=== PATIENT | male | born 1960 | race Caucasian/White ===

== ENCOUNTER 2020-03-27 12:04 | Observation (INO) ==
--- NOTE | 2020-03-27 12:34 | ERNOTE ---
Chest Pain/Cardiac HPI Date of Service: 03/27/20 Chief Complaint: Chest Pain Time Seen by Provider: 03/27/20 12:19 Source: patient, RN notes reviewed, past records Exam Limitations: no limitations Immunizations: IMMUNIZATION HX Immunizations Up to Date Yes History of Influenza Vaccine No Hx Pneumococcal Vaccination No Allergies/Adverse Reactions: Allergies Penicillins Adverse Reaction (Verified 03/27/20 12:12) Other Home Medications: HOME MEDICATIONS aspirin 81 mg tablet,delayed release 81 mg PO DAILY 05/23/19 [Last Taken Unknown] atorvastatin 40 mg tablet 40 mg PO DAILY tab 05/23/19 [Last Taken Unknown] clopidogrel 75 mg tablet 75 mg PO DAILY tab 05/23/19 [Last Taken Unknown] lisinopril 5 mg tablet 5 mg PO DAILY 05/23/19 [Last Taken Unknown] nitroglycerin 0.4 mg sublingual tablet 0.4 mg SL Q5-15M PRN 05/23/19 [Last Taken Unknown] metoprolol succinate 25 mg tablet,extended release 24 hr tab PO 11/21/19 [Last Taken Unknown] varenicline 0.5 mg (11)-1 mg (42) tablets in a dose pack See Rx Instructions PO PER PKG DIR #53 tab 01/15/20 [Last Taken Unknown] Narrative: Rich is a 59-year-old male who presents to the emergency department for chest pain. 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 He reports that he was generally not feeling well when he got up today. He had midsternal chest pain that radiated into his left arm and up the left side of his neck. His chest pain has currently improved but he still reports some soreness in his neck and left arm. He has not taken any nitroglycerin. He took 1 baby aspirin this morning. He reports that he had a heart attack in April of this year. He underwent a cardiac catheterization at that time and was found to have 3 severely blocked arteries. He reports that the arteries were too small for stents to be placed. His condition has been medically managed by Dr. Walsh at [facility] since then. Date (Duration): 03/27/20 Time (Timing): 10:00 Timing: resolved prior to arrival Severity/Quality: moderate, aching Location: substernal Chest Pain Radiation: arms - left, neck Activities at Onset: other - driving Nitro Today/Relief: no nitro taken today Aspirin Treatment Today: 81 mg x 1, provided at home Associated Symptoms: Absent: headache, cough, fever/chills, nausea, vomiting Prior Chest Pain/Cardiac Workup: Reports: prior chest pain, heart attack, cardiac cath Prior Treatment: Denies: recently seen, currently on antibiotics Review of Systems - Review of Systems Constitutional: Present: fatigue, malaise. Absent: recent illness, fever, chills EYE: Present: no symptoms reported ENT: Present: nose congestion, nasal drainage. Absent: ear pain, sore throat Respiratory: Absent: shortness of breath, cough Cardiology: Present: chest pain. Absent: palpitations, syncope, edema Gastrointestinal/Abdominal: Absent: nausea, vomiting, abdominal pain Genitourinary: Present: no symptoms reported Musculoskeletal: Present: muscle pain. Absent: joint pain Skin: Present: rash. Absent: lesions Neurological: Absent: headache, dizziness/light-headedness Endocrine: Present: no symptoms reported Hematologic/Lymphatic: Present: easy bruising, easy bleeding Psych: Present: no symptoms reported Medical History (Last Reviewed 03/27/20 @ 13:00 by Milagros Galloway NP) Coronary artery disease (Chronic) Hypertension (Chronic) Onset Date: Unknown Fall Onset Date: 06/19/18 Hip pain, left Onset Date: 06/19/18 History of pneumonia as a child Rotator cuff (capsule) sprain Onset Date: 06/26/15 Sciatic leg pain Onset Date: 06/19/18 NSTEMI (non-ST elevated myocardial infarction) Onset Date: 05/15/19 Surgical History: Surgical History (Last Reviewed 03/27/20 @ 13:01 by Milagros Galloway NP) History of right heart catheterization Onset Date: 04/2019 History of tonsillectomy Onset Date: Unknown Family History: Family History (Last Reviewed 03/27/20 @ 13:01 by Milagros Galloway NP) Mother Breast cancer Social History: (Last Reviewed 03/27/20 @ 13:01 by Milagros Galloway NP) Social History: adopted: No Marital status: household members: spouse number of children: 2 current occupational status: employed current occupation: [employer] Highest level of school completed/degree received: some college, no degree Sexually Active: Yes Service: No Tobacco: Smoking Status: Current every day smoker Alcohol: alcohol intake: never Substance Use: substance use type: does not use Dietary Habits: caffeine: Yes Type: carbonated beverages Trish/Scientologist: special trish needs: No Physical Exam - Physical Exam General Appearance: Present: wd/wn, alert Head Exam: Present: normal inspection Eye Exam: Normal inspection: bilateral Ears, Nose, Throat: Present: nasal congestion, normal pharynx. Absent: abnormal TM (R), abnormal TM (L), sinus pain/drainage Neck: Present: normal inspection, nontender, supple, full range of motion Respiratory: Present: no respiratory distress, normal breath sounds, no accessory muscle use, chest nontender, lungs clear Cardiovascular/Chest: Present: regular rate, rhythm, no murmur, normal peripheral pulses Extremity Exam: Present: normal inspection, normal range of motion, no edema Neurological Exam: Present: alert, oriented, normal mood/affect, no motor/sensory deficits Skin Exam: Present: normal color, warm/dry, skin rash - dried papular rash to dorsal hands and forearms Progress - Results and Orders Patient's Lab Results:: I have reviewed the patient's lab results. - Vital Signs Patient's Vital Signs:: I have reviewed the patient's vital signs. Vital Signs: Vital Signs 03/27/20 12:05 Temperature 36.9 C Pulse Rate 72 Respiratory Rate 18 Blood Pressure 143/98 H O2 Sat by Pulse Oximetry 96 - EKG EKG #1 EKG: NSR EKG read: Reviewed by me - X-Ray X-Ray #1 X-Ray: chest Interpretation: Reviewed by me X-ray Comments: No acute cardiopulmonary findings - Progress/Reassessment Chief Complaint: Chest Pain Progress:: Improved Progress Note-Subjective: 03/27/20 14:13 The patient continues to not have chest pain. His work-up was essentially unremarkable, but due to his history I contacted Dr. Ozuna who agreed to admit him for observation. The patient will be tested for COVID-19 prior to bed placement. 03/27/20 15:32 The patient is negative for COVID-19 and will be taken to the floor shortly. He has not had any further chest pain. Departure Clinical Impression: Chest pain, rule out acute myocardial infarction - Departure Disposition: Still a patient Condition: Stable Referrals: Jason Mackay DO [Primary Care Provider] -
[2020-03-27 12:38] LABS: Hematocrit 43.2 % (42.0-52.0); Hemoglobin 14.1 gm/dL (13.5-18.0); Mean Cell Volume 87.3 fl (78-100); Mean Corpuscular Hemoglobin 28.5 pg (27-31); Mean Corpuscular Hgb Conc 32.6 g/dl (32-36); Mean Platelet Volume 9.3 fl (8-11.3); Neutrophil # 6.6 K/mm3 (1.3-6.0); Neutrophil % 68.3 % (42-75.0); Platelet Count 259 K/mm3 (150-450); Red Blood Count 4.95 M/mm3 (4.7-6.0); Red Cell Distribution Width 12.9 % (11.5-14.0); White Blood Count 9.7 K/mm3 (4.0-10.5)
[2020-03-27 12:45] LABS: Prothrombin Time (Patient) 9.9 Seconds (9.1-10.7)
[2020-03-27] MEDS ORDERED: ASPIRIN 81 MG TAB.CHEW PO ONE (12:46)
[2020-03-27 12:51] LABS: Albumin * 3.1 gm/dl (3.4-5.0); Anion Gap 11.7 mmol/L (6.8-13.8); BUN/Creatinine Ratio 10.9 (9.0-21.6); Bilirubin, Total 0.5 mg/dL (0.0-1.1); Ca. Corrected For Albumin 8.7 mg/dL (8.4-10.2); Calcium * 8.3 mg/dL (7.9-10.9); Carbon Dioxide 24.8 mmol/L (24-32.6); Potassium 3.5 mmol/L (3.4-4.6)
[2020-03-27 12:52] LABS: Troponin I 0.061 ng/mL (0.00-0.10)
--- NOTE | 2020-03-27 16:30 | HP ---
Chief Complaint - Chief Complaint Date of Service: 03/27/20 Time of Service: 16:29 Chief Complaint: chest pain History of Present Illness: Patient with HTN, previous NSTEMI and CAD presents with deep central chest pain, left bicep pain, and left neck tightness. This started this morning. He reports having a heart attack in April of this year, but his vessels were too small for stent placement or bypass surgery, so he is being medically managed. He has nitro, but doesn't carry it with him because they melt. Denies alcohol use, but does smoke about 1/2 ppd. His chest pain has resolved at the time of my admission exam. Denies recent illness, SOB, or edema. Medical History (Last Reviewed 03/27/20 @ 13:00 by Milagros Galloway NP) Coronary artery disease (Chronic) Hypertension (Chronic) Onset Date: Unknown Fall Onset Date: 06/19/18 Hip pain, left Onset Date: 06/19/18 History of pneumonia as a child Rotator cuff (capsule) sprain Onset Date: 06/26/15 Sciatic leg pain Onset Date: 06/19/18 NSTEMI (non-ST elevated myocardial infarction) Onset Date: 05/15/19 Surgical History: Surgical History (Last Reviewed 03/27/20 @ 13:01 by Milagros Galloway NP) History of right heart catheterization Onset Date: 04/2019 History of tonsillectomy Onset Date: Unknown Family History: Family History (Last Reviewed 03/27/20 @ 13:01 by Milagros Galloway NP) Mother Breast cancer Social History: (Last Reviewed 03/27/20 @ 13:01 by Milagros Galloway NP) Social History: adopted: No Marital status: household members: spouse number of children: 2 current occupational status: employed current occupation: [employer] Highest level of school completed/degree received: some college, no degree Sexually Active: Yes Service: No Tobacco: Smoking Status: Current every day smoker Alcohol: alcohol intake: never Substance Use: substance use type: does not use Dietary Habits: caffeine: Yes Type: carbonated beverages Trish/Hindu: special trish needs: No Review Of Systems (GEN) - Review of Systems Generalized/Overall Review: Absent: Fever Respiratory: Present: Cough. Absent: Shortness of Breath Cardiac: Present: Chest Pain. Absent: Edema Abdominal: Present: Vomiting Genitourinary: Present: No Symptoms Reported Musculoskeletal: Present: Neck Pain - on left Neurological: Present: No Symptoms Reported Immunizations: IMMUNIZATION HX Immunizations Up to Date Yes History of Influenza Vaccine No Hx Pneumococcal Vaccination No Allergies/Adverse Reactions: Allergies Allergy/AdvReac Type Severity Reaction Status Date / Time Penicillins AdvReac Other Verified 03/27/20 12:12 Home Medications: HOME MEDICATIONS aspirin 81 mg tablet,delayed release 81 mg PO DAILY 05/23/19 [Last Taken Unknown] atorvastatin 40 mg tablet 40 mg PO DAILY tab 05/23/19 [Last Taken Unknown] clopidogrel 75 mg tablet 75 mg PO DAILY tab 05/23/19 [Last Taken Unknown] lisinopril 5 mg tablet 5 mg PO DAILY 05/23/19 [Last Taken Unknown] nitroglycerin 0.4 mg sublingual tablet 0.4 mg SL Q5-15M PRN 05/23/19 [Last Taken Unknown] metoprolol succinate 25 mg tablet,extended release 24 hr 1 tab PO 11/21/19 [Last Taken Unknown] Isosorbide Mononitrate [Imdur] 60 mg PO 03/27/20 [Last Taken Unknown] Exam - Exam Vital Signs: Vital Signs - Last Taken Temp 36.9 C 03/27/20 16:03 Pulse 65 03/27/20 16:03 Resp 20 03/27/20 16:03 BP 134/85 03/27/20 16:03 Pulse Ox 96 03/27/20 16:03 Constitutional: Present: Alert, Cooperative, No distress, Looks Older than stated age Neck: Present: non-tender Respiratory: Present: lungs clear, normal breath sounds Cardiovascular/Chest: Present: regular rate, rhythm Extremity: Absent: lower extremity edema Eye contact: Present: cooperative, good eye contact Diagnostic Studies: Abnormal Lab Results 03/27/20 03/27/20 Range/Units 12:30 12:30 Immature Gran % (Auto) 0.50 H (0.001-0.429) % Immature Gran # (Auto) 0.05 H (0.000-0.0310) K/mm3 Neutrophils # 6.6 H (1.3-6.0) K/mm3 Est GFR (Non-Af Amer) 56 L D (60-130) mL/min Random Glucose 112 H (70-110) mg/dL ALT 16 L (19-67) U/L Albumin 3.1 L (3.4-5.0) gm/dl Laboratory Results WBC 9.7 K/mm3 (4.0-10.5) 03/27/20 12:30 RBC 4.95 M/mm3 (4.7-6.0) 03/27/20 12:30 Hgb 14.1 gm/dL (13.5-18.0) 03/27/20 12:30 Hct 43.2 % (42.0-52.0) 03/27/20 12:30 MCV 87.3 fl (78-100) 03/27/20 12:30 MCH 28.5 pg (27-31) 03/27/20 12:30 MCHC 32.6 g/dl (32-36) 03/27/20 12:30 RDW 12.9 % (11.5-14.0) 03/27/20 12:30 Plt Count 259 K/mm3 (150-450) 03/27/20 12:30 MPV 9.3 fl (8-11.3) 03/27/20 12:30 Immature Gran % (Auto) 0.50 % (0.001-0.429) H 03/27/20 12:30 Immature Gran # (Auto) 0.05 K/mm3 (0.000-0.0310) H 03/27/20 12:30 Neutrophils % 68.3 % (42-75.0) 03/27/20 12:30 Lymphocytes % 21.5 % (20-51) 03/27/20 12:30 Monocytes % 7.5 % (0.0-9) 03/27/20 12:30 Eosinophils % 1.8 % (0.0-3.0) 03/27/20 12:30 Basophils % 0.4 % (0.0-1.0) 03/27/20 12:30 Nucleated RBC % 0.0 k/mm3 (0-1) 03/27/20 12:30 Neutrophils # 6.6 K/mm3 (1.3-6.0) H 03/27/20 12:30 Lymphocytes # 2.08 k/mm3 (1.5-3.5) 03/27/20 12:30 Monocytes # 0.7 k/mm3 (0.0-1.0) 03/27/20 12:30 Eosinophils # 0.2 k/mm3 (0.0-0.7) 03/27/20 12:30 Absolute Basophils 0.0 k/mm3 (0.0-0.1) 03/27/20 12:30 PT 9.9 Seconds (9.1-10.7) 03/27/20 12:30 INR (Anticoag Therapy) 1.00 INR (0.92-1.08) 03/27/20 12:30 PTT ([place]) 27.0 Seconds (24-32) 03/27/20 12:30 Sodium 137 mmol/L (132-142) 03/27/20 12:30 Plasma Sodium 137 mmol/L (130-142) 03/27/20 12:30 Potassium 3.5 mmol/L (3.4-4.6) 03/27/20 12:30 Chloride 104 mmol/L (97-106) 03/27/20 12:30 Carbon Dioxide 24.8 mmol/L (24-32.6) 03/27/20 12:30 Anion Gap 11.7 mmol/L (6.8-13.8) 03/27/20 12:30 BUN 15 mg/dL (6-23) D 03/27/20 12:30 Creatinine 1.38 mg/dL (0.4-1.4) 03/27/20 12:30 Est GFR (Non-Af Amer) 56 mL/min (60-130) L D 03/27/20 12:30 BUN/Creatinine Ratio 10.9 (9.0-21.6) 03/27/20 12:30 Random Glucose 112 mg/dL (70-110) H 03/27/20 12:30 Calcium 8.3 mg/dL (7.9-10.9) 03/27/20 12:30 Calcium Adj for Albumin 8.7 mg/dL (8.4-10.2) 03/27/20 12:30 Total Bilirubin 0.5 mg/dL (0.0-1.1) 03/27/20 12:30 AST 15 U/L (0-48) 03/27/20 12:30 ALT 16 U/L (19-67) L 03/27/20 12:30 Alkaline Phosphatase 131 U/L (50-170) 03/27/20 12:30 Troponin I 0.061 ng/mL (0.00-0.10) 03/27/20 12:30 Total Protein 7.0 gm/dL (6.2-8.2) 03/27/20 12:30 Albumin 3.1 gm/dl (3.4-5.0) L 03/27/20 12:30 SARS-CoV-2 (PCR) Not detected (NotDetected) 03/27/20 14:12 Assessment/Plan - Assessment/Plan (1) Chest pain, rule out acute myocardial infarction Assessment: Troponin not significantly elevated at 0.06, repeat 0.04. Will monitor overnight, and likely DC in the morning. Discussed using nitro for these circumstances in the future. He next visit with cardiology is probably about 4 months from now. Problem: Acute (2) Coronary artery disease Assessment: He developed a skin reaction to atorvastatin, so this was stopped. Continue home aspirin, plavix, metoprolol, imdur, and lisinopril. Problem: Chronic (3) Hypertension Assessment: Currently well controlled. Will continue home meds. Problem: Chronic (4) Tobacco use Assessment: He appears older than his age. Can send nicotine gum on DC. Problem: Chronic
[2020-03-28] MEDS ORDERED: CLOPIDOGREL BISULFATE 75 MG TABLET PO SCH (09:00)
[2020-03-28] MEDS ORDERED: ISOSORBIDE MONONITRATE 60 MG TAB.SR.24H PO SCH (09:00)
[2020-03-28] MEDS ORDERED: METOPROLOL SUCCINATE 25 MG TABLET.SA PO SCH (09:00)
[2020-03-28] MEDS ORDERED: ASPIRIN 81 MG TABLET.DR PO SCH (09:00)
--- NOTE | 2020-03-28 09:45 | DS ---
(1) Chest pain, rule out acute myocardial infarction Problem: Resolved (2) Coronary artery disease Problem: Chronic (3) Hypertension Problem: Chronic (4) Tobacco use Problem: Chronic Date of Discharge:: 03/28/20 Hospital Course: Patient with HTN, previous NSTEMI and CAD presents with deep central chest pain, left bicep pain, and left neck tightness. This started this morning. He reports having a heart attack in April of this year, but his vessels were too small for stent placement, so he is being medically managed. He has nitro, but doesn't carry it with him because they melt. Denies alcohol use, but does smoke about 1/2 ppd. His chest pain has resolved at the time of my admission exam. Denies recent illness, SOB, or edema. Troponin not significantly elevated at 0.06, repeat 0.04. EKG did not show signs of infarct or ischemia. Discussed using nitro for these circumstances in the future. Also discussed tobacco cessation, and trying nicotine gum. His CP had resolved by the time of DC. His next visit with cardiology is about 3-4 months from now, and he will call to move that up if he has more concerns. Procedures Performed: none Results and Findings: Lab Pending Results 03/27/20 12:30: WBC 9.7, RBC 4.95, Hgb 14.1, Hct 43.2, MCV 87.3, MCH 28.5, MCHC 32.6, RDW 12.9, Plt Count 259, MPV 9.3, Immature Gran % (Auto) 0.50 H, Immature Gran # (Auto) 0.05 H, Neutrophils % 68.3, Lymphocytes % 21.5, Monocytes % 7.5, Eosinophils % 1.8, Basophils % 0.4, Nucleated RBC % 0.0, Neutrophils # 6.6 H, Lymphocytes # 2.08, Monocytes # 0.7, Eosinophils # 0.2, Absolute Basophils 0.0 03/27/20 12:30: PT 9.9, INR (Anticoag Therapy) 1.00, PTT ([place]) 27.0 03/27/20 12:30: Sodium 137, Plasma Sodium 137, Potassium 3.5, Chloride 104, Carbon Dioxide 24.8, Anion Gap 11.7, BUN 15 D, Creatinine 1.38, Est GFR (Non-Af Amer) 56 L D, BUN/Creatinine Ratio 10.9, Random Glucose 112 H, Calcium 8.3, Calcium Adj for Albumin 8.7, Total Bilirubin 0.5, AST 15, ALT 16 L, Alkaline Phosphatase 131, Troponin I 0.061, Total Protein 7.0, Albumin 3.1 L 03/27/20 14:12: SARS-CoV-2 (PCR) Not detected 03/27/20 17:05: Troponin I 0.049 Discharge Location: Home Disposition: Home self-care Condition: Stable Discharge Activity: Activity as tolerated Discharge Diet: Other - heart healthy Referrals: Jason Mackay DO [Primary Care Provider] - One Week Complete Home Medications List: Complete Home Medication List: aspirin 81 mg tablet,delayed release 81 mg PO DAILY 05/23/19 atorvastatin 40 mg tablet 40 mg PO DAILY tab 05/23/19 clopidogrel 75 mg tablet 75 mg PO DAILY tab 05/23/19 lisinopril 5 mg tablet 5 mg PO DAILY 05/23/19 nitroglycerin 0.4 mg sublingual tablet 0.4 mg SL Q5-15M PRN 05/23/19 metoprolol succinate 25 mg tablet,extended release 24 hr 1 tab PO 11/21/19 Isosorbide Mononitrate [Imdur] 60 mg PO 03/27/20 Forms: Patient Portal Registration
[2020-03-28 10:23] VITALS: BP 162/92
== END 2020-03-28 10:35 | disposition home or self-care (01) ==
LOC: MS 12:04 → ER 12:04 → MS 15:39
PROVIDERS: ADMIT Family Medicine; ATTEND Family Medicine